=== PATIENT | male | born 2000 | race Caucasian/White ===

== ENCOUNTER 2023-08-13 15:26 | Emergency (ER) | payer BC, SELFPAY ==
[2023-08-13 15:30] VITALS: BP 160/90; PULSE 70; RESP 18; TEMP 36.6; O2SAT 100; BMI 28.0
--- NOTE | 2023-08-13 15:36 | XR_ITS ---
PROCEDURE INFORMATION: Exam: XR Left Hand Exam date and time: 08/13/2023 3:34 PM Age: 22 years old Clinical indication: Injury or trauma; Other: Injured by dog; Blunt trauma (contusions or hematomas); Left; Little finger; Additional info: Fifth metacarpal trauma TECHNIQUE: Imaging protocol: Radiologic exam of the left hand. Views: 3 or more views. Total images: 3 COMPARISON: No relevant prior studies available. FINDINGS: Bones/joints: Slightly displaced fracture of the midshaft of the 5th metacarpal. Soft tissues: Overlying soft tissue swelling. No evidence of radiopaque foreign bodies. IMPRESSION: 1. Slightly displaced fracture of the midshaft of the 5th metacarpal. 2. Overlying soft tissue swelling. 3. No evidence of radiopaque foreign bodies.
--- NOTE | 2023-08-13 15:37 | HMH.EDGENADL ---
Discharge Plan Disposition Patient Disposition: Home, Self-Care Referrals Follow up/Referrals: Lion Gale MD [Primary Care Provider] - See instructions Tate Roberts DO [Staff Physician] - See instructions Activity Restrictions/Add. Instructions Additional Instructions/Restrictions: Please follow-up with your primary care provider. Please return to the emergency department if you develop any new or worsening symptoms or become concerned for your health. Please keep splint clean dry and intact. Please call to follow-up with Dr. Roberts in clinic for further evaluation and possible operative intervention. Please remain nonweightbearing of the left upper extremity until cleared by orthopedic surgery. Clinical Impressions Clinical Impression: Fracture, metacarpal shaft Qualifiers: Encounter type: initial encounter Metacarpal bone: fifth Fracture type: closed Fracture alignment: displaced Laterality: left Qualified Code(s): S62.327A - Displaced fracture of shaft of fifth metacarpal bone, left hand, initial encounter for closed fracture Stand Alone Forms Stand Alone Forms: Work/School Release Instructions Patient Instructions: DI for a Hand Fracture Discharge ED Provider: [facility] HPI General Chief complaint: Extremity Injury, Lower Stated complaint: AO was trying to defend cat and hurt Left hand Time Seen by Provider: 08/13/23 15:31 History of Present Illness HPI narrative: 22-year-old male reportedly previously presents with left hand pain. He was trying to break up a fight between a dog and a cat when he struck his left hand against something and had sudden onset of pain. He reports that he was not bit or scratched by either animal. He has deformity over the left fifth metacarpal with pain with palpation. He reports no numbness or tingling. Related Data Allergies Allergy/AdvReac Type Severity Reaction Status Date / Time No Known Allergies Allergy Verified 08/13/23 15:44 [facility] Disclaimer: The information contained in this section may have been updated after the patient was seen, as this information can be updated by other users. Social History Smoking Status: Current every day smoker alcohol intake: never current occupational status: employed Travel in the last 8 weeks: None ROS Obtained: Yes All systems reviewed & no additional complaints except as documented Physical Exam General General appearance: alert and in no apparent distress Head Head exam: atraumatic and normocephalic Eye Eye exam: Present normal appearance, PERRL and EOMI ENT ENT exam: Present normal oropharynx and normal external ear exam Neck Neck exam: Present normal inspection and full ROM Chest Chest inspection: Present normal inspection and symmetric chest wall rise; Absent tenderness Respiratory Respiratory exam: Present normal lung sounds bilaterally; Absent respiratory distress Cardiovascular Cardiovascular exam: Present regular rate and normal rhythm Abdominal Exam Abdominal exam: Present soft; Absent distention, tenderness or guarding Extremities Exam Extremities exam: Present other (Left hand: Dorsal swelling over the left fifth metacarpal with associated tenderness. No laceration or skin break. Normal tendon and neurovascular function) Back Exam Back exam: Present normal inspection; Absent tenderness Neurological Exam Neurological exam: Present alert and oriented X3; Absent motor sensory deficit Psychiatric Psychiatric exam: Present normal affect and normal mood Skin Skin exam: Present warm, dry and normal color Lymphatic Lymphatic Findings: no adenopathy Medical Decision Making Medical Records Medical records reviewed: Yes I reviewed the patient's medical records. Sukhwinder Inquiry Pt receiving controlled substance: No Sukhwinder was queried for this patient: No Vital Signs: 08/13/23 15:30 08/13/23 18:18 Temperature 97.9 F 97.9 F Temperature Source Oral Oral Pulse Rate 70 Pulse Rate [Radial] 70 Respiratory Rate 18 18 Blood Pressure 160/90 H Blood Pressure [Right Arm] 160/90 H Blood Pressure Mean [Right Arm] 113 Blood Pressure Source Automatic Cuff Blood Pressure Source [Right Arm] Automatic Cuff Blood Pressure Position Sitting Blood Pressure Position [Right Arm] Sitting 02 Sat by Pulse Oximetry 100 Oxygen Delivery Method Room Air Room Air Lab Data Lab results reviewed: Yes I reviewed the patient's lab results. Orders (Tests/Meds): ED MEDICATIONS Discontinued Medications Generic Name Dose Route Start Last Admin Trade Name Yoon PRN Reason Stop Dose Admin Acetaminophen 1,000 mg 08/13/23 15:36 08/13/23 15:47 Acetaminophen 500mg Tab PO 08/13/23 15:37 1,000 mg ONCE ONE Administration Ibuprofen 600 mg 08/13/23 15:36 08/13/23 15:47 Ibuprofen 600 Mg Tablet PO 08/13/23 15:37 600 mg ONCE ONE Administration ORDERS Category Date Time Status Hand XR left minimum 3 views [XR hand LT min 3V] Stat Exams 08/13/23 15:36 Completed Hand XR left minimum 3 views [XR hand LT min 3V] Stat Exams 08/13/23 17:51 Completed Medical Decision Narrative: 22-year-old male, previously healthy, presents with left fifth metacarpal pain after trauma. History was obtained via conversation with patient. On arrival, patient is [afebrile, hemodynamically stable, satting appropriately, alert, oriented x4, GCS 15], moving all extremities spontaneously. Full physical exam performed and significant for swelling over the dorsal fifth metacarpal with associated tenderness, fifth finger is mildly rotated. Differential includes but is not limited to fracture, dislocation, neurovascular/ligamentous injury. Patient was given p.o. Tylenol and ibuprofen for symptomatic management and correction of underlying abnormalities. Workup initiated including radiograph of the left hand. On re-evaluation, patient [remains afebrile, HD stable.] Reports mild symptomatic improvement. Imaging independently interpreted by me and significant for angulated and displaced midshaft fifth metacarpal fracture. See radiology read for full review of final results. These fines were communicated to patient. Patient was consented for fracture reduction. Fracture was reduced and splinted in ulnar gutter splint. Postreduction films interpreted by me, no longer displaced, fracture remains angulated but is within acceptable limits. Given patient history, exam and workup, patient's presentation most likely represents boxer's fracture of the left hand. Given initial rotation on exam and persistent fracture angulation, patient may require surgical intervention. Patient was given follow-up information for Dr. Roberts. Patient was given work note with instructions to remain nonweightbearing of the left upper extremity. Return precautions given. Patient discharged in stable condition. Procedures Risk/Benefits of Procedure(s) Were Explained: Yes Orthopedic Fracture Reduction Fracture #1: Side: left Fracture Reduction Location: other (Fifth metacarpal midshaft) Analgesia: none Technique: direct manipulation and traction/counter-traction Post Reduction X-rays Demonstrate: acceptable reduction Post-reduction neuro exam: intact Post-reduction vascular exam: intact Splint Applied: Yes (Personally by me at bedside) Patient Tolerated Procedure: well and no complications Orthopedic Splinting/Casting Injury #1: Side: left Upper Extremity Injury Location: hand Upper Extremity Immobilizer: ulnar gutter Additional Comments: Applied by me at bedside Post Cast/Splinting Neuro Status: intact Post Cast/Splinting Vasc Status: intact Critical Care Critical Care Time Critical Care Time: No
[2023-08-13] MEDS: ACETAMINOPHEN 500MG TAB 1000 MG PO (15:47)
[2023-08-13] MEDS: IBUPROFEN 600 MG TABLET PO (15:47)
--- NOTE | 2023-08-13 17:51 | XR_ITS ---
PROCEDURE INFORMATION: Exam: XR Left Hand Exam date and time: 08/13/2023 5:51 PM Age: 22 years old Clinical indication: Screening exam; Post reduction TECHNIQUE: Imaging protocol: Radiologic exam of the left hand. Views: 3 or more views. Total images: 3 COMPARISON: CR Hand L 08/13/2023 3:34 PM FINDINGS: Bones/joints: There has been reduction of the previously noted fracture of the 5th metacarpal. No evidence of acute dislocation. Soft tissues: Soft tissues not well seen due to splinting Other findings: Overlying splinting material is in place. Material. IMPRESSION: 1. There has been reduction of the previously noted fracture of the 5th metacarpal. 2. No evidence of acute dislocation.
[2023-08-13 18:18] VITALS: BP 160/90; PULSE 70; RESP 18; TEMP 36.6; O2SAT 100
== END 2023-08-13 18:19 | disposition home or self-care (01) ==
PROVIDERS: Emergency Provider Emergency Medicine; PCP Family Medicine
DX: S62.327A Displaced fracture of shaft of fifth metacarpal bone, left hand, initial encounter for closed fracture (principal); F17.200 Nicotine dependence, unspecified, uncomplicated; W22.8XXA Striking against or struck by other objects, initial encounter
CPT/HCPCS: 26605; 73130; 99283

== ENCOUNTER 2023-08-17 09:16 | Outpatient (CLI) | payer BC, SELFPAY ==
--- NOTE | 2023-08-17 09:25 | ECG_ITS ---
APPROVED REPORT Exam: Resting ECG HR:61 bpm ECG Measurements Heart Rate 61 AXES MD 173 P 23 QRSd 109 QRS 60 QT 383 T 35 QTc 387 Conclusion SINUS RHYTHM WITH MARKED SINUS ARRHYTHMIA BORDERLINE ECG UNCONFIRMED REPORT Electronically signed by : Otoniel Chin MD 08/17/2023 20:07:26
--- NOTE | 2023-08-17 09:34 | XR_ITS ---
FINAL REPORT CLINICAL HISTORY: Pre Op for broken 5th digit smoker FINDINGS: Two views of the chest were obtained. The heart size and pulmonary vascularity are within normal limits. The mediastinum is normal. No acute pulmonary abnormality is identified. There is no pneumothorax. The bony thorax is intact. IMPRESSION: No active cardiopulmonary disease. Reviewed, Interpreted and Dictated by Randal Castillo III, MD Transcribed by Michelle Castillo Authenticated and [facility]
[2023-08-17 09:42] LABS: Basophils # 0.1 K/mm3 (0-0.2); Basophils % 0.8 % (0.1-2.0); Eosinophils # 0.4 K/mm3 (0.0-0.4); Eosinophils % 4.9 % (0.1-12.0); Hematocrit 48.4 % (42.0-52.0); Hemoglobin 16.3 g/dL (14.1-18.0); Lymphocytes # 2.8 K/mm3 (0.7-4.5); Mean Corpuscular HGB Conc 33.7 g/dL (31.8-35.4); Mean Corpuscular Hemoglobin 30.5 pg (27.0-31.2); Mean Corpuscular Volume 90.7 fl (80-94); Mean Platelet Volume 8.8 fl (7.4-10.4); Monocytes # 0.4 K/mm3 (0.1-1.0); Monocytes % 4.8 % (1.7-9.3); Neutrophils # 3.7 K/mm3 (1.8-7.8); Neutrophils % 50.6 % (37.0-80.0); Platelet Count 212 K/mm3 (142-424); Red Blood Count 5.33 M/mm3 (4.60-6.20); Red Cell Distribution Width 12.7 % (11.5-17.5); White Blood Count 7.3 K/mm3 (4.8-10.8)
[2023-08-17 10:01] LABS: Alanine Aminotransferase 54 U/L (12-78); Alkaline Phosphatase 51 U/L (38-126); Aspartate Amino Transferase 33 U/L (17-59); Bilirubin,Total 0.5 mg/dl (0.2-1.3); Blood Urea Nitrogen 14 mg/dl (9-20); Carbon Dioxide 27 mmol/L (22.0-30.0); Chloride 106 mmol/L (98-107); Estimated Glomerular Filt Rate 120 ml/min (>60); GFR (African American) 145 ML/MIN (>60)
[2023-08-17 10:02] LABS: Albumin Level 4.6 g/dl (3.5-5.0); Albumin/Globulin Ratio 2.1 (1.1-1.8); Anion Gap 7.6 mEq/L (5-15); Globulin 2.2 g/dL (1.3-3.2); Glucose 89 mg/dl (74-100); Potassium 4.6 mmoL/L (3.5-5.1); Sodium 136 mmol/L (136-145); Total Protein,Serum 6.8 g/dl (6.3-8.2)
== END 2023-08-17 23:59 ==
LOC: RT 09:17
PROVIDERS: PCP Family Medicine; Visit Provider Orthopaedic Surgery
DX: S62.326A Displaced fracture of shaft of fifth metacarpal bone, right hand, initial encounter for closed fracture (principal); W01.0XXA Fall on same level from slipping, tripping and stumbling without subsequent striking against object, initial encounter
CPT/HCPCS: 36415; 71046; 80053; 85025; 93005

== ENCOUNTER 2023-08-21 09:54 | Day surgery (SDC) | payer BC, SELFPAY ==
[2023-08-17 13:11] VITALS: BMI 28.0
[2023-08-21] VITALS (8 sets, daily range): BP systolic 123–134; BP diastolic 59–88; PULSE 61–88; RESP 14–18; TEMP 36.1–36.4; O2SAT 92–100
--- NOTE | 2023-08-21 | XR_ITS ---
FINAL REPORT CLINICAL HISTORY: ORIF left 5 METACARPAL. 1.72 mGy 1.45 Fluoro time FINDINGS: FLUOROSCOPY LESS THAN 1 HOUR HISTORY: Fluoroscopy guidance. Fluoroscopic guidance was provided for ORIF left fifth metacarpal. 2 spot films were obtained. A total of 1.45 minutes of fluoroscopy time were used. Total DAP: 1.72 mGy IMPRESSION: As above. Reviewed, Interpreted and Dictated by Randal Castillo III, MD Transcribed by Shirin Pitts Authenticated and [facility]
[2023-08-21] MEDS: LACTATED RINGERS 1000ML 1,000 ML 25 ML IV (10:17)
--- NOTE | 2023-08-21 10:48 | P.PNANES_ITS ---
[facility] Disclaimer: The information contained in this section may have been updated after the patient was seen, as this information can be updated by other users. Medical History No significant past medical history Surgical History No significant past surgical history Family History Other No significant family history Social History Smoking Status: Current every day smoker alcohol intake: never substance use type: marijuana current occupational status: employed Travel in the last 8 weeks: None [facility] Anesthesia Checklist Patient Identification Patient Identification: Arm Band and Verbal (Name & ) Structural Data Admitted From: Home Planned Operative Procedure/s: ORIF L 5th metacarpal Consent for Planned Operative Procedure(s) Verified: Yes NPO Status Verified Time NPO: 00:00 Additional verifications Anesthesia Reactions: No Hx Blood Transfusions: No Blood Transfusion Reaction: No Airway Assessment Mallampati Score:: Class II C-Spine Mobility Assessed: Yes TMJ Mobility Assessed: Yes Dentition: Poor Dentition Neurological Assessment Level of Consciousness: Awake Hx Seizures: No Numbness or tingling in extremities: No Anesthesia Plan Anesthesia Risk discussed: Yes Anesthesia Plan: Verified ASA Class: II Anesthesia Type: General w/block
[2023-08-21] MEDS: CEFAZOLIN SODIUM 1 GM in 0.9 % SODIUM CHLORIDE 50 ML IV (12:15)
--- NOTE | 2023-08-21 13:52 | P.PNANES_ITS ---
[facility] Anesthesia Record Part I Anesthesia Record I Intake, IV Amount: 300 Hydration: Adequate Estimated blood loss (mL): 10 Urine output (mL): 0 Blood Products used (#): none Blood Pressure: 134/78 SaO2: 93 Pulse Rate: 76 Airway Patency: Patent Respiratory Rate: 16 Temperature: 97.0 F Patient is:: Drowsy and Stable Stable to PACU at:: 13:52
--- NOTE | 2023-08-21 13:58 | EXP.OP.NOTE ---
Date of procedure: 08/21/23 Pre-op Diagnosis:: Left fifth metacarpal shaft fracture Post-op Diagnosis:: Same Procedure performed:: Open reduction internal fixation left fifth multiple fracture with intramedullary screw Surgeon:: Tate Roberts DO [employer] SAL[employer] REPRESENTATIVE:: Other Anesthesia: GETA Estimated blood loss (mL): 0 Operative findings:: See report Operative note:: Patient is identified preoperatively. Left hand marked with yes my initials. Then transferred to operative suite after undergoing a block with anesthesia and placed upon upon the operating bed. General anesthesia administered airway secured and then the left upper extremity was prepped and draped normal sterile fashion. Once prepped and draped final operative timeout performed to identify proper patient procedure and extremity. Everyone involved the case agreed. There is no counter indications beginning. Did receive preoperative antibiotics. X-ray was brought into identify the fracture is midshaft fracture with 60 degrees of flexion at the midshaft and severely angulated. X-ray was brought into identify incision site at the head of the fifth metacarpal incision was taken through skin careful dissection was taken down with a full-thickness incision to split the extensor tendon then was retracted to allow to place a K wire in the metacarpal head. K wire was viewed on the AP lateral and oblique views of the hand for proper starting portion on the dorsal portion of the metacarpal head. K wire was then advanced across the fracture site. This required traction flexion and extension of the fracture. This was confirmed on AP and lateral views. Once the K wire was across fracture site reduction was appropriate the step drill for the headless compression screw was utilized and a 3.5 mm headless compression screw was placed the depth of the screw was viewed to be below the surface of the articular surface on the metacarpal head gave great compression and fracture reduction. Fracture was very stable to flexion extension on the x-ray no rotational deformity of the finger. Irrigation wound performed. Slit in the tendon repaired with Vicryl stitch and 3 nylon stitch in the skin sterile dressing placed along with an ulnar gutter based splint. Patient waken anesthesia taken recovery stable condition. Condition: stable Disposition: PACU Complications:: None apparent
--- NOTE | 2023-08-22 07:58 | EXP.ANES.II ---
[facility] Anesthesia Record Part II Anesthesia Record Part II Discharge Time: 14:17 Destination: Surgical Day Care (OP Surgery) PACU nurse assessment reviewed?: Yes Patient Condition:: Good Anesthesia Complications:: None Swallowing reflex intact?: Yes Airway Patency: Patent Cyanosis?: No Blood Pressure: 123/59 SaO2: 100 Respiratory Rate: 16 Pulse Rate: 62 Temperature: 97.6 F Mental Status: Alert & Oriented Pain level:: 0 Nausea and/or vomitting:: None Intake, IV Amount: 0 Hydration: Adequate
[2023-08-22 07:59] VITALS: BP 123/59; PULSE 62; RESP 16; TEMP 36.4; O2SAT 100
== END 2023-08-21 14:41 | disposition home or self-care (01) ==
PROVIDERS: PCP Family Medicine; Visit Provider Orthopaedic Surgery
PROC: (CPT 26615; principal; 2023-08-21 11:45)
DX: S62.327A Displaced fracture of shaft of fifth metacarpal bone, left hand, initial encounter for closed fracture (principal); W01.0XXA Fall on same level from slipping, tripping and stumbling without subsequent striking against object, initial encounter
CPT/HCPCS: 26615; 73120; 76000; 96374; C1713; J2405

== ENCOUNTER 2023-09-05 10:27 | Outpatient (CLI) | payer BC, SELFPAY ==
--- NOTE | 2023-09-05 10:35 | XR_ITS ---
FINAL REPORT CLINICAL HISTORY: lt hand fx..pain COMPARISON: 08/13/2023 FINDINGS: Left hand Three views were obtained. Patient is status post ORIF of the 5th metacarpal. There is evidence of fracture healing. There is no displacement. IMPRESSION: Post ORIF of the 5th metacarpal with evidence of healing. Reviewed, Interpreted and Dictated by Vanesa Schwartz MD Transcribed by Michelle Castillo Authenticated and [facility]
== END 2023-09-05 23:59 ==
LOC: RAD 10:30
PROVIDERS: PCP Family Medicine; Visit Provider Orthopaedic Surgery
DX: S62.327D Displaced fracture of shaft of fifth metacarpal bone, left hand, subsequent encounter for fracture with routine healing (principal); Z98.890 Other specified postprocedural states
CPT/HCPCS: 73130

== ENCOUNTER 2023-09-05 12:16 | Outpatient (RCR) | payer BC, SELFPAY | END 2023-09-05 13:30 | disposition home or self-care (01) | LOC: OT 12:16 | PROVIDERS: Visit Provider Orthopaedic Surgery | DX: S62.327A Displaced fracture of shaft of fifth metacarpal bone, left hand, initial encounter for closed fracture (principal) | CPT/HCPCS: 97763 ==

== ENCOUNTER 2023-10-03 10:09 | Outpatient (CLI) | payer BC, SELFPAY ==
--- NOTE | 2023-10-03 10:14 | XR_ITS ---
FINAL REPORT CLINICAL HISTORY: lt hand pain COMPARISON: 08/13/2023 FINDINGS: AP, oblique, and lateral views of the left hand were obtained. There has been placement of a surgical screw in the 5th metacarpal for fracture. The hardware is intact. The joint spaces are preserved. The soft tissues are normal. IMPRESSION: Healed fracture. Reviewed, Interpreted and Dictated by Yue Snow MD Transcribed by Michelle Castillo Authenticated and [facility]
== END 2023-10-03 23:59 ==
LOC: RAD 10:10
PROVIDERS: PCP Family Medicine; Visit Provider Orthopaedic Surgery
DX: M79.642 Pain in left hand (principal); S62.327A Displaced fracture of shaft of fifth metacarpal bone, left hand, initial encounter for closed fracture
CPT/HCPCS: 73130